=== PATIENT | male | born 1960 | race Caucasian/White ===

== ENCOUNTER 2020-11-06 09:11 | Outpatient (REF) | payer BC, SELFPAY ==
[2020-11-06 09:43] LABS: MANUAL DIFF FLAG NO
[2020-11-06 09:46] LABS: Basophils Percent Auto 0.8 % (0-2); Eosinophils Absolute Auto 0.2 X10*3/uL (0.0-0.4); Eosinophils Percent Auto 4.3 % (0-4); Hematocrit 45.6 % (42-52); Hemoglobin 15.1 g/dl (14.0-18.0); Lymphocytes Absolute Auto 2.5 X10*3/uL (1.2-4.9); Mean Corpuscular HGB Conc 33.1 g/dl (31.0-36.0); Mean Corpuscular Hemoglobin 30.6 pg (27.0-33.0); Mean Corpuscular Volume 92.5 fL (80-98); Mean Platelet Volume 11.2 fL (9.4-12.4); Monocytes Absolute Auto 0.5 X10*3/uL (0.1-1.2); Monocytes Percent Auto 9.6 % (2-11); Neutrophils Percent Auto 37.3 % (45-73); Platelet Count 230 X10*3/uL (160-400); Red Blood Count 4.93 X10*6/uL (4.60-5.80); Red Cell Distribution Width 13.6 % (11.0-16.0); White Blood Count 5.3 X10*3/uL (4.8-10.8)
[2020-11-06 10:10] LABS: Alanine Aminotransferase 16 U/L (0-40); Albumin Level 4.5 g/dL (3.5-5.0); Alkaline Phosphatase 66 U/L (39-117); Anion Gap 11 (12-20); Aspartate Amino Transferase 20 U/L (5-37); Bilirubin Total 0.7 mg/dL (0.0-1.0); Blood Urea Nitrogen 15 mg/dL (9-16); Carbon Dioxide 30 mmol/L (22-29); Chloride 103 mmol/L (96-108); Cholesterol 221 mg/dL; Estimated Glomerular Filt Rate > 60; Glucose Fasting 91 mg/dL (60-99); HDL Cholesterol 66 mg/dL; LDL Cholesterol Calculated 145 mg/dl; Potassium 4.9 mmol/l (3.3-5.1); Sodium 139 mmol/L (135-145); Triglycerides 50 mg/dL
[2020-11-06 10:32] LABS: Prostate Specific Antigen 0.96 ng/mL (<0.05-4.0)
== END 2020-11-06 09:12 | disposition home or self-care (01) ==
LOC: HO.LAB 09:11
PROVIDERS: PCP Internal Medicine; Visit Provider Internal Medicine
DX: Z00.00 Encounter for general adult medical examination without abnormal findings (principal); Z12.5 Encounter for screening for malignant neoplasm of prostate
CPT/HCPCS: 36415; 80053; 80061; 84153; 85025

== ENCOUNTER 2021-02-23 07:16 | Day surgery (SDC) | payer BC, SELFPAY ==
[2021-02-18 14:57] VITALS: BMI 26.6
[2021-02-23 07:36] VITALS: BP 137/70; PULSE 66; RESP 16; TEMP 36.4; O2SAT 100
[2021-02-23] MEDS: Lactated Ringers 1,000 ML 100 ML IVCONT (07:50)
--- NOTE | 2021-02-23 08:22 | P.CONAN_ITS ---
HPI - Anesthesia Eval Consult details Narrative: 60 yo male patient here for colonoscopy PMFSH Past Medical History Medical History No significant past medical history Family History Family history of problems with anesthesia: No Surgical History Surgical History H/O colonoscopy Hx of appendectomy Hx of wisdom tooth extraction History of Problems with Anesthesia: No Social History Social History Smoking Status: Unknown if ever smoked Advance Directives Information Provided: No Meds Allergies Allergy/AdvReac Type Severity Reaction Status Date / Time No Known Allergies Allergy Verified 02/18/21 14:56 Active Medications: Current Medications Generic Name Dose Route Start Last Admin Trade Name Freq PRN Reason Stop Dose Admin Sodium Biphosphate/Sodium Phosphate 133 ml 02/23/21 07:18 Sodium Phosphate,[place]-Dibasic 133 Ml Enema NC ONCE PRN Poor Colonoscopy Prep Results Home Medications Medication Instructions Recorded Confirmed Last Taken Type No Known Home Meds 02/18/21 02/18/21 Unknown History Exam Exam Date and Time: February 23, 2021 0822 Height,Weight and Vital Signs: Height 6 ft Weight 88.904 kg Last Vital Signs Temp 97.5 F 02/23/21 07:36 Pulse 66 02/23/21 07:36 Resp 16 02/23/21 07:36 BP 137/70 02/23/21 07:36 Pulse Ox 100 02/23/21 07:36 Airway Mallampati Class: I TM Dist: >3cm Neck ROM: Full Heart: RRR Lungs: CTAB Assessment and Plan Assessment Anesthesia Assessment: Anesthesia Plan Discussed and Chart Reviewed Final Anesthetic Review NPO: Yes ASA Class: I Final Preanesthetic Review: No Changes in Pt Med Stat, Meds/Allgs Chart Revi ewed, Consent Obtained/Reviewed and Anes Risks/Benef Reviewed Patient Risk: Low Procedure Risk: Low Assessment/Block/Sedation in SS: Assess/Block/Sedation-SS Anesthetic Plan Anesthetic Plan: MAC: Disposition: Standard PACU
[2021-02-23 09:14] VITALS: BP 102/61; PULSE 75; RESP 16; TEMP 36.3; O2SAT 97
--- NOTE | 2021-02-23 09:16 | PM.OP ---
Brief Operative Note Date of Service: 02/23/21 Pre-op diagnosis: Screening Post-op diagnosis: other (Colon polyp) Procedure: Colonoscopy to the cecum with biopsy and removal of polyp Surgeon: Vicente Toussaint Anesthesia: MAC Estimated blood loss (mL): 3.0 Pathology: other (A. Ascending colon polyp) Condition: stable Disposition: PACU
[2021-02-23 09:29] VITALS: BP 108/70; PULSE 61; RESP 18; TEMP 36.3; O2SAT 97
--- NOTE | 2021-02-23 11:02 | OP_ITS ---
SURGEON: Vicente Toussaint MD INDICATIONS: The patient presents for evaluation of colorectal cancer screening. Full consent has been obtained from him for this, including risks of bleeding and perforation. PREOPERATIVE DIAGNOSIS: Colorectal cancer screening. POSTOPERATIVE DIAGNOSIS: PROCEDURE PERFORMED: Colonoscopy to the cecum with biopsy and removal of polyp. ESTIMATED BLOOD LOSS: COMPLICATIONS: ANESTHESIA: Monitored anesthesia care. ASSISTANTS: SPECIMENS: POSTOPERATIVE DIAGNOSES: Colorectal cancer screening, small colon polyp, diverticulosis and internal hemorrhoids. DESCRIPTION OF PROCEDURE: The patient was placed in the left lateral decubitus position. The digital rectal exam revealed no abnormalities. The Olympus video pediatric colonoscope was entered into the rectum and advanced easily to the cecum. Once in the cecum, I did identify normal-appearing cecal pouch with appendiceal orifice and a normal-appearing ileocecal valve. The entire cecum and ileocecal valve appeared normal. There was transillumination of light deep in the right lower quadrant. The scope was slowly withdrawn assessing all mucosal surfaces carefully. Preparation was excellent. In the ascending colon, was an approximately 5 mm polyp, which was biopsied and completely removed with cold biopsy forceps. It appeared to be grossly adenomatous. I did not visualize any other polyps, colitis, nor angiodysplasia. There was a mild amount of sigmoid diverticulosis. In the rectum, scope was retroflexed visualizing small internal hemorrhoids, but no other pathology. The rectal mucosa appeared normal. The scope was straightened out and withdrawn from the patient. He tolerated the procedure well and was returned to recovery area in stable condition. IMPRESSION: 1. Small colon polyp, status post biopsy and removal. 2. Diverticulosis. 3. Internal hemorrhoids. PLAN: The results of the pathology will be checked. If this is a tubular adenoma, I would recommend a followup colonoscopy in 5 years. If it is only hyperplastic, I would recommend a followup colonoscopy in 10 years. He will otherwise see me on a p.r.n. basis. MD JERAD Mayers/ENRIQUE / [id number]
== END 2021-02-23 09:54 | disposition home or self-care (01) ==
PROVIDERS: PCP Internal Medicine; Visit Provider Internal Medicine
PROC: 0DJD8ZZ Inspection of Lower Intestinal Tract, Via Natural or Artificial Opening Endoscopic (ICD-10-PCS; CPT 45378; principal; 2021-02-23 08:20)
DX: Z12.11 Encounter for screening for malignant neoplasm of colon (principal); D12.2 Benign neoplasm of ascending colon; K57.30 Diverticulosis of large intestine without perforation or abscess without bleeding; K64.8 Other hemorrhoids; Z66 Do not resuscitate
CPT/HCPCS: 45380; 88305

== ENCOUNTER 2021-02-24 09:51 | Outpatient (REF) | payer BC, SELFPAY ==
[2021-02-24 10:54] LABS: Cholesterol 205 mg/dL; HDL Cholesterol 55 mg/dL; LDL Cholesterol Calculated 139 mg/dl; Triglycerides 57 mg/dL
== END 2021-02-24 09:52 | disposition home or self-care (01) ==
LOC: HO.LAB 09:51
PROVIDERS: PCP Internal Medicine; Visit Provider Internal Medicine
DX: E78.00 Pure hypercholesterolemia, unspecified (principal)
CPT/HCPCS: 36415; 80061